=== PATIENT | female | born 1980 | race Caucasian/White ===

== ENCOUNTER 2024-06-29 10:47 | Emergency (ER) | payer OTHER ==
[~2024-06-29] VITALS: Ht 170.2 cm; Wt 59.0 kg
[2024-06-29 11:27] VITALS: BP 120/70; TEMP 98.2
[2024-06-29] MEDS ORDERED: ERYT3.5O9 EACHEYE (11:48)
[2024-06-29 12:00] VITALS: O2SAT 100
--- NOTE | 2024-06-29 12:01 | NUR ---
Patient discharged to home in stable condition. Written and verbal after care instructions given. Patient verbalizes understanding of instruction.
== END 2024-06-29 12:01 | disposition home or self-care (01) ==
LOC: ER 10:47
DX: H00.012 Hordeolum externum right lower eyelid (principal)